=== PATIENT | male | born 1985 | race Hispanic/Latino ===

== ENCOUNTER 2021-06-01 16:34 | Emergency (ER) | payer OTHER ==
[~2021-06-01] VITALS: Ht 175.3 cm; Wt 106.6 kg
[2021-06-01 16:36] VITALS: BP 113/55
[2021-06-01] MEDS ORDERED: ACETAMINOPHEN 325 MG TAB PO ONE (17:30)
[2021-06-01] MEDS ORDERED: TETANUS/DIPHTHERIA TOXOID [ADULT] 0.5 ML VIAL IM ONE (17:30)
[2021-06-01] MEDS ORDERED: CEPHALEXIN 500 MG CAPSULE PO ONE (17:30)
[2021-06-01] MEDS ORDERED: ACET-2247 PO (17:42)
[2021-06-01] MEDS ORDERED: CEPH500B PO (17:42)
== END 2021-06-01 18:26 | disposition home or self-care (01) ==
LOC: EDH 16:34 → EEVIPCON 16:34 → EDH 18:26
DX: S40.011A Contusion of right shoulder, initial encounter (principal); S40.012A Contusion of left shoulder, initial encounter; S50.312A Abrasion of left elbow, initial encounter; S50.311A Abrasion of right elbow, initial encounter; S80.212A Abrasion, left knee, initial encounter; S80.211A Abrasion, right knee, initial encounter; I10 Essential (primary) hypertension; E11.9 Type 2 diabetes mellitus without complications; W18.39XA Other fall on same level, initial encounter; Y93.89 Activity, other specified; Y92.89 Other specified places as the place of occurrence of the external cause; Y99.8 Other external cause status
CPT/HCPCS: 73030; 90471; 90714